=== PATIENT | male | born 1950 | race Caucasian/White ===

== ENCOUNTER 2016-11-21 06:22 | Observation (INO) | payer MEDICARE ==
--- NOTE | 2016-11-21 08:28 | PCM.HP ---
H&P History of Present Illness - General Date of Service: 11/21/16 Admit Problem/Dx: Admission Diagnosis/Problem Admission Diagnosis/Problem Hematochezia Source of Information: Patient History Limitations: Reports: No Limitations - History of Present Illness Initial Comments - Free Text/Narative: This is a 65yo M with complaints of not feeling well for the past 2 days and first noticing bright red blood in his stool since yesterday. He states he has had two bowel movements and they have both been bloody. He has had one syncopal episode this am and has felt lightheaded for over a day or two. 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 Patient has a PMH of [place], 3 stents, Afib on Coumadin, has a pacemaker with defibrillator, and recent gastric bypass at the end of September. Patient states he feels better now that he is here but continues to have some lightheadedness. Patient denies prior episodes of GI bleeds and he has been on Coumadin for 2 years. Duration of Symptoms: Reports: Day(s): Improves with: Reports: None Worsens with: Reports: None Associated Symptoms: Reports: Syncope, Weakness - Related Data Allergies/Adverse Reactions: Allergies Allergy/AdvReac Type Severity Reaction Status Date / Time Penicillins Allergy Anaphylactic Verified 11/21/16 07:35 Shock Social & Family History - Tobacco Use Smoking Status *Q: Former Smoker H&P Review of Systems - Review of Systems: Review Of Systems: See Below General: Reports: Weakness HEENT: Reports: No Symptoms Pulmonary: Reports: No Symptoms Cardiovascular: Reports: Lightheadedness, Syncope Gastrointestinal: Reports: Bloody Stool, Hematochezia Genitourinary: Reports: No Symptoms Musculoskeletal: Reports: No Symptoms Skin: Reports: No Symptoms Psychiatric: Reports: No Symptoms Neurological: Reports: Dizziness Hematologic/Lymphatic: Reports: No Symptoms Exam - Exam Exam: See Below - Exam Quality Assessment: Supplemental Oxygen General: Alert, Oriented, Cooperative HEENT: PERRLA, Conjunctiva Clear Neck: Supple, Trachea Midline Lungs: Clear to Auscultation, Normal Respiratory Effort Cardiovascular: Irregular Rhythm Abdomen: Normal Bowel Sounds, Soft, Pelvis Stable (Male) Exam: Normal Inspection Rectal (Males) Exam: Normal Exam, Normal Rectal Tone, Bloody Stool, Heme + Stool Back Exam: Normal Inspection, Full Range of Motion Extremities: Normal Inspection - Patient Data Result Diagrams: 11/21/16 07:00 11/21/16 07:00 *Q Meaningful Use (ADM) - VTE *Q VTE Criteria *Q: - Stroke *Q Stroke Criteria *Q: - AMI *Q AMI Criteria *Q: - Problem List (1) Hematochezia SNOMED Code(s): 819168270 ICD Code: K92.1 - MELENA Status: Acute Priority: High Current Visit: Yes (2) GI bleed SNOMED Code(s): 87562045 ICD Code: K92.2 - GASTROINTESTINAL HEMORRHAGE, UNSPECIFIED Status: Acute Priority: High Current Visit: Yes Qualifiers: GI bleed type/associated pathology: anorectal hemorrhage Qualified Code(s) : K62.5 - Hemorrhage of anus and rectum (3) Syncope and collapse SNOMED Code(s): 642570429 ICD Code: R55 - SYNCOPE AND COLLAPSE Status: Resolved Priority: High Current Visit: Yes (4) Lightheaded SNOMED Code(s): 299832348 ICD Code: R42 - DIZZINESS AND GIDDINESS Status: Acute Priority: High Current Visit: Yes (5) Anemia SNOMED Code(s): 281425585 ICD Code: D64.9 - ANEMIA, UNSPECIFIED Status: Acute Priority: High Current Visit: Yes Qualifiers: Iron deficiency anemia type: chronic blood loss (6) Renal dysfunction Status: Acute Priority: High Current Visit: Yes Problem List Initiated/Reviewed/Updated: Yes Assessment/Plan Comment:: Patient placed in observation. Counseled and obtained consent for 2 units of PRBCs. Patient's prior Hg on 09/05/16 was 14 and now 8.3. Patient to be monitored under telemetry during this time.
--- NOTE | 2016-11-21 15:01 | PCM.DCSUM1 ---
Discharge Summary - Hospital Course Brief History: This is a 65yo M placed in observation for anemia secondary to acute GI bleed and supratherapeutic INR. He has received 2 units of packed RBC' s with no complications. Patient states he is feeling much better and not lightheaded anymore. - Discharge Data Discharge Date: 11/21/16 Discharge Disposition: Home, Self-Care 01 Condition: Good - Discharge Diagnosis/Problem(s) (1) Hematochezia SNOMED Code(s): 554026009 ICD Code: K92.1 - MELENA Status: Acute Priority: High Current Visit: Yes (2) GI bleed SNOMED Code(s): 65990391 ICD Code: K92.2 - GASTROINTESTINAL HEMORRHAGE, UNSPECIFIED Status: Acute Priority: High Current Visit: Yes Qualifiers: GI bleed type/associated pathology: anorectal hemorrhage Qualified Code(s) : K62.5 - Hemorrhage of anus and rectum (3) Syncope and collapse SNOMED Code(s): 622322373 ICD Code: R55 - SYNCOPE AND COLLAPSE Status: Resolved Priority: High Current Visit: Yes (4) Lightheaded SNOMED Code(s): 962686993 ICD Code: R42 - DIZZINESS AND GIDDINESS Status: Acute Priority: High Current Visit: Yes (5) Anemia SNOMED Code(s): 580262916 ICD Code: D64.9 - ANEMIA, UNSPECIFIED Status: Acute Priority: High Current Visit: Yes Qualifiers: Iron deficiency anemia type: chronic blood loss (6) Renal dysfunction Status: Acute Priority: High Current Visit: Yes - Discharge Plan Home Medications: Home Meds Allopurinol [Allopurinol] 300 mg pe PO DAILY 11/21/16 [History] Colchicine/Probenecid [Probenecid-Colchicine] 0.5 - 500 mg PO DAILY 11/21/16 [ History] Cyclobenzaprine [Flexeril] 10 mg PO TID 11/21/16 [History] Furosemide [Furosemide] 20 mg PO DAILY 11/21/16 [History] Hydrocodone/Acetaminophen [Hydrocodon-Acetaminoph 7.5-325] 1 each PO TID PRN [History] Insulin Aspart [NovoLOG] 12 units SQ QID 11/21/16 [History] Insulin Glarg,Human.Rec.Analog [Lantus Solostar] 30 units SQ QAM 11/21/16 [ History] Lisinopril [Lisinopril] 5 mg PO DAILY 11/21/16 [History] Metoprolol Succinate [Toprol XL 100mg] 100 mg PO DAILY 11/21/16 [History] Warfarin [Coumadin] 5 mg PO DAILY 11/21/16 [History] - Discharge Summary/Plan Comment DC Time >30 min.: Yes Discharge Summary/Plan Comment: Counseled on f/u with PCP. Discussed anemia and INR values. Patient to hold Coumadin until seen and evaluated by PCP on Friday. Patient to f/u GI bleed with PCP. - General Info Date of Service: 11/21/16 Functional Status: Reports: tolerating diet, ambulating - Review of Systems General: Reports: No Symptoms HEENT: Reports: no symptoms Pulmonary: Reports: no symptoms Cardiovascular: Reports: No Symptoms Gastrointestinal: Reports: Hematochezia Genitourinary: Reports: no symptoms Musculoskeletal: Reports: no symptoms Skin: Reports: no symptoms Neurological: Reports: No Symptoms Psychiatric: Reports: no symptoms - Patient Data Vitals - Most Recent: Last Vital Signs Temp 36.8 C 11/21/16 14:14 Pulse 83 11/21/16 14:14 Resp 20 11/21/16 14:14 BP 147/58 H 11/21/16 14:14 Pulse Ox 98 11/21/16 14:14 Weight - Most Recent: 108.862 kg I&O - Last 24 hours: Intake & Output 11/20/16 11/21/16 11/21/16 22:59 06:59 14:59 Intake Total 390 Balance 390 Lab Results - Last 24 hrs: Laboratory Results - last 24 hr 11/21/16 Range/Units 12:51 POC Glucose 177 H (74-110) mg/dL - Exam General: Reports: alert, oriented HEENT: Reports: Pupils equal, Pupils reactive, EOMI Neck: Reports: supple Lungs: Reports: Clear to auscultation, Normal respiratory effort Cardiovascular: Reports: Regular Rate, Regular Rhythm Abdomen: Reports: bowel sounds present (Male) Exam: Normal Inspection Back Exam: Reports: Normal Inspection Extremities: Reports: other (left ankle sprain) Skin: Reports: warm, dry, intact Neurological: Reports: no new focal deficit *Q Meaningful Use (DIS) - VTE *Q VTE Criteria *Q: - Stroke *Q Stroke Criteria *Q: - AMI *Q AMI Criteria *Q:
[2016-11-21 18:34] VITALS: BP 153/52
== END 2016-11-21 18:10 | disposition home or self-care (01) ==
LOC: LB.ED 06:22 → LB.MS 07:36
PROVIDERS: ADMIT Family Medicine; ATTEND Family Medicine
DX: K92.2 Gastrointestinal hemorrhage, unspecified (principal); D50.0 Iron deficiency anemia secondary to blood loss (chronic); R55 Syncope and collapse; N28.9 Disorder of kidney and ureter, unspecified; I48.91 Unspecified atrial fibrillation; I25.2 Old myocardial infarction; R53.1 Weakness; Z88.0 Allergy status to penicillin; Z87.891 Personal history of nicotine dependence; Z98.84 Bariatric surgery status; Z95.810 Presence of automatic (implantable) cardiac defibrillator; Z99.2 Dependence on renal dialysis; Z79.899 Other long term (current) drug therapy; Z79.01 Long term (current) use of anticoagulants
CPT/HCPCS: 36415; 36430; 80048; 82272; 82962; 84484; 85025; 85610; 86850; 86900; 86901; 86920; 86922; 93005; 99236; 99285; A0425; A0429; G0378; P9016